=== PATIENT | female | born 1950 ===

== ENCOUNTER 2022-02-02 09:14 | Inpatient (IN) | payer OTHER ==
[~2022-02-02] VITALS: Ht 162.6 cm; Wt 84.4 kg
[~2022-02-02 09:14] MED LIST: ATORVASTATIN CA40 MG; DAFLONEX-XL 11300 MG; FOSAMAX70 MG; MAXIMUM D3325 MCG; TOPROL XL100 M1; TOPROL XL50 M1; VALSARTAN-HCTZ1 EAC4; ZETIA10 MG
[2022-02-10] MEDS ORDERED: PROGESTERONE200 MG (08:24)
[2022-02-10] MEDS ORDERED: LORATADINE10 MG (08:24)
[2022-02-10] MEDS ORDERED: FAMOTIDINE40 MG (08:24)
[2022-02-10] MEDS ORDERED: BIOCAL SOFTGEL1 EACH (08:24)
== END 2022-02-10 13:45 | disposition home or self-care (01) | DRG 743 ==
LOC: OB/GYN 02-09 06:57 → O/R 02-09 06:57 → SURG 02-09 11:15 → OB/GYN 02-09 22:23
PROVIDERS: ADMIT Obstetrics & Gynecology Gynecologic Oncology; ATTEND Obstetrics & Gynecology Gynecologic Oncology
PROC: 0UT74ZZ Resection of Bilateral Fallopian Tubes, Percutaneous Endoscopic Approach (ICD-10-PCS; 2022-02-09)
PROC: 0UT24ZZ Resection of Bilateral Ovaries, Percutaneous Endoscopic Approach (ICD-10-PCS; 2022-02-09)
PROC: 07BC4ZZ Excision of Pelvis Lymphatic, Percutaneous Endoscopic Approach (ICD-10-PCS; 2022-02-09)
PROC: 0UT94ZZ Resection of Uterus, Percutaneous Endoscopic Approach (ICD-10-PCS; principal; 2022-02-09 13:15)
DX: D27.1 Benign neoplasm of left ovary (principal); N80.0 Endometriosis of uterus; N84.0 Polyp of corpus uteri; N83.311 Acquired atrophy of right ovary; I70.298 Other atherosclerosis of native arteries of extremities, other extremity; Z20.822 Contact with and (suspected) exposure to COVID-19